=== PATIENT | female | born 1995 | race Caucasian/White ===

== ENCOUNTER 2021-04-11 17:15 | Emergency (ER) | payer OTHER ==
[2021-04-11 17:34] VITALS: BP 120/82; PULSE 83; TEMP 98.3; BMI 22.1
== END 2021-04-11 17:52 | disposition home or self-care (01) ==
LOC: FER 17:15
DX: S93.431A Sprain of tibiofibular ligament of right ankle, initial encounter (principal); X50.9XXA Other and unspecified overexertion or strenuous movements or postures, initial encounter
CPT/HCPCS: 73610-TC-RT-FY; 99283-25